=== PATIENT | male | born 1985 | race Caucasian/White ===

== ENCOUNTER 2018-03-27 17:57 | Emergency (ER) | payer MEDICAID, OTHER ==
[2018-03-27 18:10] VITALS: TEMP 99.2
[2018-03-27 18:20] VITALS: BP 140/96; PULSE 83; RESP 20; O2SAT 96
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
== END 2018-03-27 18:40 | disposition home or self-care (01) ==
LOC: C.ER 17:57
DX: S13.4XXA Sprain of ligaments of cervical spine, initial encounter (principal); S16.1XXA Strain of muscle, fascia and tendon at neck level, initial encounter; V89.2XXA Person injured in unspecified motor-vehicle accident, traffic, initial encounter